=== PATIENT | female | born 1985 | race Caucasian/White ===

== ENCOUNTER 2016-11-15 08:37 | Inpatient (IN) | payer OTHER ==
[~2016-11-15] VITALS: Ht 172.7 cm; Wt 108.9 kg
[~2016-11-15 08:37] MED LIST: ALPRAZOLAM0.5 MG PO; DOXYCYCLINE MO100 MG PO; ESCITALOPRAM10 MG PO; FLEXERIL10 MG PO; PERCOCET 325 MG1 TA2 PO; ZOFRAN 4 MG TABL4 MG PO
[2016-11-15 09:45] LABS: ABSOLUTE BASOPHIL COUNT 0 /CUMM (0.0-0.2); ABSOLUTE EOSINOPHIL COUNT 0.1 /CUMM (0.0-0.7); ABSOLUTE GRANULOCYTE CT 3.7 /CUMM (1.4-6.5); ABSOLUTE LYMPH COUNT 1.7 /CUMM (1.2-3.4); ABSOLUTE MONOCYTE COUNT 0.5 /CUMM (0.10-0.60); BASOPHIL % 0.4 % (0.0-2.0); EOSINOPHIL % 0.9 % (0-5); GRANULOCYTE % 61.2 % (42.2-75.2); HEMATOCRIT 29.6 % (37-47); MEAN CORPUSCULAR HGB 24.6 PG (27.0-31.0); MEAN CORPUSCULAR HGB CONC 33.1 G/DL (33.0-37.0); MEAN CORPUSCULAR VOLUME 74.3 FL (81.0-99.0); MEAN PLATELET VOLUME 8.6 FL (7.4-10.4); PLATELET COUNT 203 /CUMM (130-400); RED BLOOD CELL CT 3.98 /CUMM (4.20-5.40)
--- NOTE | 2016-11-15 18:57 | History & Physical ---
General Information and HPI MD Statement: I have seen and personally examined JEET FLANAGAN and documented this H&P. The patient is a 31 year old female at 39[] weeks and 0[] days gestation who presented with a chief complaint of [induction of labor]. History of Present Illness: 31-year-old 8 para 1 LMP 02/16/2016 EDC 11/22/2016 at 39 weeks presents today from induction of labor secondary to macrosomia and precipitous labor. 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 EENTM: Reports: no symptoms. Cardiovascular: Reports: no symptoms. Respiratory: Reports: no symptoms. GI: Reports: no symptoms. Genitourinary: Reports: no symptoms. Musculoskeletal: Reports: no symptoms. Skin: Reports: no symptoms. Neurological/Psychological: Reports: no symptoms. Hematologic/Endocrine: Reports: no symptoms. Immunologic/Allergic: Reports: no symptoms. All Other Systems: Reviewed and Negative Exam & Diagnostic Data Last 24 Hrs of Vital Signs/I&O Intake & Output 11/15 1600 11/15 0800 11/15 0000 Intake Total Output Total Balance Patient 240 lb Weight Obstetric Exam Wgt Gained During : 40 pounds Pelvimetry: Gynecoid Dilation (cm): 0 Effacement (%): 0 Station: -2 Membranes: intact Fluid: unknown Fundal Height (cm): 41 Multiple Gestation? No Contractions: None Infant #1 - FHR Baseline: 145 Category: 1 Estimated Weight: 9 pounds Presentation: Cephalic Patient for Induction? Yes Theodore Score Theodore Score Response Value Cervix Position: posterior 0 Cervix Consistency: soft 2 Cervix Effacement: 0-30% 0 Cervix Dilation: closed 0 Cervix Station: -2 1 Total 3 Physical Exam: HEENT: Normocephalic atraumatic Chest: Clear to auscultation bilaterally Cardiovascular: Normal S1-S2 Abdomen: Gravid, cephalic, estimated weight 9 pounds pelvic: Long thick closed posterior Extremities: No edema Neurologic: Nonfocal Labs Blood Type & Rh: O+ Antibody Screen: Negative Hct/Hgb & Platelets #1: 34, 11, 196 Hct/Hgb & Platelets #2: 38, 12, 248 Rubella: Immune VDRL #1: Nonreactive VDRL #2: Nonreactive HbsAg: Negative HIV #1: Negative HIV #2 Negative 1 Hr P 3 Hr PG: ED for, 173, 141, 120 Group B Strep: pending Initial Ultrasound: wnl Anatomy Ultrasound: wnl Ultrasound for EFW: 8 Genetic Testing: neg Assessment/Plan Assessment/Plan: 39 week macrosomia induction of labor As Ranked By This Provider Problem List: 1. Core Measures/Miscellaneous Cruz Catheter Date In: 11/15/16 Still Needed? Yes Venous Thromboembolism VTE Risk Factors: Obesity, / VTE Contraindications: No Contraindications VTE Prophylaxis Ordered Inpt: Early Ambulation VTE Diagnosis: No Beta Luis Is Beta Luis a Home Med? No Antibiotics Is Patient on Antibiotics? Yes If Yes: prophylaxis
--- NOTE | 2016-11-16 00:23 | Labor & Delivery Summary ---
Delivery Summary Vaginal Delivery: Vaginal: spontaneous Episiotomy/Lacerations: Type: laceratiion Repair: 3-0 poly int Anesthesia: epi Placenta: Placenta: spontanteous, normal, 3 vessel Anesthesia: epi Baby's Weight: 9-8 Apgars - 1 Min: 9 Apgars - 5 Min: 9
[2016-11-16 01:17] VITALS: BP 125/70
[2016-11-17 08:07] LABS: ABSOLUTE BASOPHIL COUNT 0 /CUMM (0.0-0.2); ABSOLUTE EOSINOPHIL COUNT 0.1 /CUMM (0.0-0.7); ABSOLUTE GRANULOCYTE CT 3.7 /CUMM (1.4-6.5); ABSOLUTE LYMPH COUNT 2.6 /CUMM (1.2-3.4); ABSOLUTE MONOCYTE COUNT 0.5 /CUMM (0.10-0.60); BASOPHIL % 0.6 % (0.0-2.0); EOSINOPHIL % 1.7 % (0-5); GRANULOCYTE % 52.9 % (42.2-75.2); HEMATOCRIT 26.8 % (37-47); MEAN CORPUSCULAR HGB 24.4 PG (27.0-31.0); MEAN CORPUSCULAR HGB CONC 32.8 G/DL (33.0-37.0); MEAN CORPUSCULAR VOLUME 74.4 FL (81.0-99.0); MEAN PLATELET VOLUME 8.9 FL (7.4-10.4); PLATELET COUNT 193 /CUMM (130-400); RBC DISTRIBUTION WIDTH 14.9 % (11.5-14.5)
[2016-11-17] MEDS ORDERED: IBUPROFEN800 M1 PO (09:21)
[2016-11-17] MEDS ORDERED: DOCUSATE SODIU100 M3 PO (09:21)
--- NOTE | 2016-11-17 09:23 | PN- Post Delivery/GYN ---
Subjective Subjective: dewsires discharge Review of Systems: neg Objective Last 24 Hrs of Vital Signs/I&O vss Physical Exam: ff ext nt Assessment/Plan Assessment/Plan ppd1 early discharge Problem List: 1.
== END 2016-11-17 13:25 | DRG 560 ==
LOC: GNO 08:37
PROVIDERS: ADMIT Obstetrics & Gynecology
PROC: 0HQ9XZZ Repair Perineum Skin, External Approach (ICD-10-PCS; principal; 2016-11-15)
PROC: 10E0XZZ Delivery of Products of Conception, External Approach (ICD-10-PCS; 2016-11-15)
PROC: 3E033VJ Introduction of Other Hormone into Peripheral Vein, Percutaneous Approach (ICD-10-PCS; 2016-11-15)
DX: O70.0 First degree perineal laceration during delivery (principal); Z3A.39 39 weeks gestation of pregnancy; Z37.0 Single live birth; O36.63X0 Maternal care for excessive fetal growth, third trimester, not applicable or unspecified
CPT/HCPCS: GNOP; GNOS; 59025; 81001; 81003; 87086; J2405; J7120

== ENCOUNTER 2016-11-22 12:26 | Emergency (ER) | payer OTHER ==
[~2016-11-22] VITALS: Ht 172.7 cm; Wt 103.4 kg
[~2016-11-22 12:26] MED LIST changes: +DOCUSATE SODIU100 M3 PO; +IBUPROFEN800 M1 PO
[2016-11-22 12:39] VITALS: BP 156/89
--- NOTE | 2016-11-22 13:47 | ULTRASOUND REPORT ---
EXAMINATION: US TRIPLEX LOWER EXTREMITY, BILATERAL CLINICAL INFORMATION: Bilateral calf pain; one week . COMPARISON: None. TECHNIQUE: Color-flow triplex imaging with spectral analysis and compression Doppler were performed on the bilateral lower extremities. FINDINGS: Respiratory variation, normal compression and augmented flow are noted throughout the bilateral lower extremities. The visualized common femoral vein, proximal greater saphenous vein, femoral vein, profunda femoral vein, popliteal vein and visualized mid calf venous segments show no evidence of deep venous thrombosis. There is no Greene's cyst. IMPRESSION: Normal triplex scan without evidence of deep venous thrombosis involving the bilateral lower extremities.
--- NOTE | 2016-11-22 14:35 | ED CARDIAC/CP/PALPITATIONS ---
See Addendum History of Present Illness General Chief Complaint: Chest Pain Stated Complaint: SIB PASHA SHAVER FOR CHEST PAIN Source: patient Exam Limitations: no limitations Vital Signs & Intake/Output Vital Signs & Intake/Output Vital Signs Date Time Temp Pulse Resp B/P Pulse O2 O2 Flow FiO2 Ox Delivery Rate 11/22 1400 99 Room Air 11/22 1239 97.8 66 20 156/89 99 Room Air Allergies Coded Allergies: NO KNOWN ALLERGIES (11/15/16) Reconcile Medications Docusate Sodium 100 MG CAPSULE 100 MG PO BID PRN STOOL SOFTENER Ibuprofen 800 MG TABLET 800 MG PO Q6P PRN UTERINE CRAMPING Triage Note: PT SIB DR CASAREZ FOR CP, BILATERAL CALF PAIN. PT IS 1 WEEK NORMAL VAGINAL DELIVERY. . PT STATES SHE IS ALSO SOB. STATES THE PAIN STARTED THE DAY AFTER DELIVERY Triage Nurses Notes Reviewed? yes : No Patient currently breastfeeds: No HPI: Patient is a 31-year-old lady who had a recent normal vagianl delivery (11/16) is SIB her [employer] clinic for evaluation of possible pulmonary embolus. She reports that one day after delivery she started experiencing chest pain which she described as sharp and more prominent duirng inspirations. Patient reports that her episodes of chest intermittent and have been there for 5 days. Associated symptoms include mild shortness of breath, and bilateral leg pain. Patient denies any radiation of her chest pain to upper extremities or jaw, no numbness or tingling of the upper extremities, no nausea vomiting, and no diaphoresis. The pain is also not affected by exertion. Past History Travel History Traveled to [place] past 21 day No Medical History Any Pertinent Medical History? 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 No Review of Systems Review of Systems Constitutional: Denies: chills, diaphoresis, fever, malaise, weakness. EENTM: Denies: double vision, visual changes. Respiratory: Denies: cough, hemoptysis, orthopnea, short of breath. Cardiovascular: Denies: chest pain, edema, orthopena. GI: Denies: bloating, constipation, diarrhea, distention. Genitourinary: Denies: discharge, dysuria, frequency. Musculoskeletal: Denies: gout, joint swelling, muscle pain. Skin: Reports: no symptoms. Neurological/Psychological: Denies: anxiety, ataxia, confusion, depressed. Hematologic/Endocrine: Denies: bruising, bleeding, polyuria. Physical Exam Physical Exam General Appearance: no apparent distress, alert, awake Head: atraumatic, normal appearance Eyes: Bilateral: normal appearance, PERRL. Ears, Nose, Throat: normal pharynx Neck: normal inspection Respiratory: normal breath sounds, chest non-tender, no respiratory distress Cardiovascular: regular rate/rhythm Peripheral Pulses: 2+ popliteal (R), 2+ popliteal (L), 2+ tibialis posterior (R), 2+ tibialis posterior (L), 2+ dorsalis pedis (R), 2+ dorsalis pedis (L) Gastrointestinal: normal bowel sounds, soft, non-tender Back: normal inspection, normal range of motion, vertebral tenderness Extremities: normal inspection, normal capillary refill, no erythema or tenderness noted on lower extremities. Molly sign negative. Popliteal pulses +2 b /l. Neurologic/Psych: no motor/sensory deficits, awake, alert Skin: intact, normal color, warm/dry Core Measures ACS in differential dx? Yes ASA ordered for poss ACS? Patient decided to leave AMA. Pt's chest pain was not typical or suggestive of ACS, trops were not obtained due to patinet leaving. Severe Sepsis Present: No Septic Shock Present: No All Positive = PERC Ruled Out: Positive: age < 50 years, heart rate < 100 bpm, O2 sat > 94%, no hemoptysis, no hormone use, no prior DVT or PE, no unilateral leg swellin, no surgery/trauma w/ in 4w. Progress Differential Diagnosis: AMI, costochondritis, pneumonia, pulmonary embolism, respiratory failure Plan of Care: Orders Procedure Date/time Status EKG 11/22 1229 Active Laboratory Tests 11/22/16 1426: Troponin I Cancelled, D-Dimer Cancelled Initial ED EKG: no ST T wave changes Departure Departure Time of Disposition: 1435 Disposition: LEFT AGAINST MEDICAL ADVICE Condition: Stable Clinical Impression Primary Impression: Chest pain Ruled Out Impressions: Pulmonary embolism Referrals: PATIENT HAS NO PRIMARY CARE DR (PCP/Family) Departure Forms: Customer Survey General Discharge Information Comments Patient was adamant that she did not want to stay longer in the ED because her son was in the car with family memeber and did not want to bring her less than 1 week baby in to the ED. She was satisfied that the doppler was negative for DVT. Counseled patient regarding the need to do more workup to completely ruled out PE and other cuases of chest pain. Pt was informed about the dangers of living against medical advice. Patient understood the risk and opted to leave after signing the AMA form. Reiterated to the patient that she needs to seek immediate medical attention if her condition worsens. Critical Care Note Critical Care Note Critical Care Time: 30-74 min
== END 2016-11-22 14:45 | disposition left against medical advice (07) ==
LOC: ERH 12:26
DX: R07.9 Chest pain, unspecified (principal); I26.99 Other pulmonary embolism without acute cor pulmonale; O90.9 Complication of the puerperium, unspecified
CPT/HCPCS: 93005; 93010; 93970

== ENCOUNTER 2017-01-18 07:46 | Emergency (ER) | payer OTHER ==
[~2017-01-18] VITALS: Ht 172.7 cm; Wt 86.2 kg
--- NOTE | 2017-01-18 07:58 | ED PSYCHIATRIC COMPLAINT ---
History of Present Illness General Chief Complaint: Psychiatric Related Complaint Stated Complaint: BIBA ANXIETY AND DEPRESSION Source: patient Exam Limitations: no limitations Vital Signs & Intake/Output Vital Signs & Intake/Output Vital Signs Date Time Temp Pulse Resp B/P Pulse O2 O2 Flow FiO2 Ox Delivery Rate 01/18 1230 75 16 140/85 98 Room Air 01/18 0801 97 01/18 0757 97.8 86 20 158/90 Room Air Allergies Coded Allergies: NO KNOWN ALLERGIES (11/15/16) Reconcile Medications Alprazolam (Xanax) 0.5 MG TABLET 1 TAB PO Q12 PRN ANXIETY Escitalopram Oxalate 10 MG TABLET 1 TAB PO DAILY MENTAL HEALTH (Reported) Triage Nurses Notes Reviewed? yes Onset: Abrupt Duration: day(s): Timing: recent history HPI: 01/18/17 9:25 AM 31-year-old female presents to the emergency department for depression and anxiety. The patient states she recently lost her son. She has a history of depression for which she takes Lexapro. She also has a history of severe anxiety. She ran out of her benzodiazepines approximately one week ago. She sees an outside psychiatrist. The onset of the symptoms were abrupt, the duration has been approximately the past week, the severity is significant; as her symptoms required to come to the emergency department for care. She has associated depression and anxiety. Labs were sent. Crisis consultation was requested. She denies suicidal ideation currently in the ED Past History Travel History Traveled to [place] past 21 day No Medical History Any Pertinent Medical History? 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 No Review of Systems Review of Systems Constitutional: Denies: fever. EENTM: Reports: no symptoms. Respiratory: Reports: no symptoms. Cardiovascular: Reports: no symptoms. GI: Reports: no symptoms. Genitourinary: Reports: no symptoms. Musculoskeletal: Reports: no symptoms. Skin: Reports: no symptoms. Neurological/Psychological: Reports: depressed. Hematologic/Endocrine: Reports: no symptoms. Immunologic/Allergic: Reports: no symptoms. Physical Exam Physical Exam General Appearance: well developed/nourished, alert, awake, anxious, mild distress Head: atraumatic, normal appearance Eyes: Bilateral: normal appearance, PERRL, EOMI. Ears, Nose, Throat: normal pharynx, normal ENT inspection Neck: normal inspection, supple Respiratory: normal breath sounds, chest non-tender, no respiratory distress Cardiovascular: regular rate/rhythm Gastrointestinal: non-tender Extremities: normal range of motion Neurological/Psychiatric: awake, alert, anxious, oriented x 3 Appearance/Memory/Insight: appropriate appearance Behavoir/Eye Contact/Speech: cooperative Thoughts/Hallucinations: normal thought pattern, no apparent hallucination Skin: intact, normal color, warm/dry SAD PERSONS SAD PERSONS Response Value Depression/Hopelessness? yes 2 Previous Attempts/Psych Care yes 1 Social Support? has support 0 Total 3 SAD PERSONS Done? yes Progress Differential Diagnosis: drug overdose, drug withdrawal, depression Plan of Care: Orders Procedure Date/time Status Add-on Test (ER Only) 01/18 1218 Active THYROID STIMULATING HORMONE 01/18 838 Complete Continuous Observation Monitor 01/18 817 Complete URINE DRUG SCREEN FOR ER ONLY 01/18 817 Complete ETHANOL 01/18 817 Complete COMPREHENSIVE METABOLIC PANEL 01/18 817 Complete CBC WITHOUT DIFFERENTIAL 01/18 817 Complete ED CRISIS PSYCH CONSULT 01/18 817 Active Laboratory Tests 01/18/17 0840: Urine Opiates Screen < 100.00, Methadone Screen 42, Barbiturate Screen < 60, Ur Phencyclidine Scrn < 6.00, Amphetamines Screen < 100, U Benzodiazepines Scrn > 800 H, Urine Cocaine Screen < 50, Urine Cannabis Screen < 5.00 01/18/17 0838: Anion Gap 14, Estimated GFR > 60, BUN/Creatinine Ratio 14.0, Glucose 101 H, Calcium 9.5, Total Bilirubin 0.7, AST 309 H, ALT 192 H, Alkaline Phosphatase 103, Total Protein 7.7, Albumin 4.7, Globulin 3.0, Albumin/Globulin Ratio 1.6, TSH 1.270, CBC w Diff NO MAN DIFF REQ, RBC 4.71, MCV 81.7, MCH 27.7, RDW 21.3 H , MPV 7.8, Gran % 70.8, Lymphocytes % 23.0, Monocytes % 5.2, Eosinophils % 0.6, Basophils % 0.4, Absolute Granulocytes 4.8, Absolute Lymphocytes 1.6, Absolute Monocytes 0.4, Absolute Eosinophils 0, Absolute Basophils 0, PUBS MCHC 33.9, Serum Alcohol 28.0 Initial ED EKG: none Departure Departure Disposition: HOME OR SELF CARE Condition: Stable Clinical Impression Primary Impression: Anxiety Secondary Impressions: Depression Referrals: PILO CHOUDHURY MD Departure Forms: Customer Survey General Discharge Information Prescriptions: Current Visit Scripts Alprazolam (Xanax) 1 TAB PO Q12 PRN ANXIETY #10 TAB Comments Patient seen and evaluated and cleared by crisis. Her elevated liver enzymes were reviewed with her. She will follow these results up with primary care doctor this week.
[2017-01-18 08:57] LABS: ABSOLUTE BASOPHIL COUNT 0 /CUMM (0.0-0.2); ABSOLUTE EOSINOPHIL COUNT 0 /CUMM (0.0-0.7); ABSOLUTE GRANULOCYTE CT 4.8 /CUMM (1.4-6.5); ABSOLUTE LYMPH COUNT 1.6 /CUMM (1.2-3.4); ABSOLUTE MONOCYTE COUNT 0.4 /CUMM (0.10-0.60); BASOPHIL % 0.4 % (0.0-2.0); EOSINOPHIL % 0.6 % (0-5); GRANULOCYTE % 70.8 % (42.2-75.2); HEMATOCRIT 38.5 % (37-47); MEAN CORPUSCULAR HGB 27.7 PG (27.0-31.0); MEAN CORPUSCULAR HGB CONC 33.9 G/DL (33.0-37.0); MEAN CORPUSCULAR VOLUME 81.7 FL (81.0-99.0); MEAN PLATELET VOLUME 7.8 FL (7.4-10.4); PLATELET COUNT 286 /CUMM (130-400); RBC DISTRIBUTION WIDTH 21.3 % (11.5-14.5); RED BLOOD CELL CT 4.71 /CUMM (4.20-5.40); WHITE BLOOD CELL COUNT 6.9 /CUMM (4.8-10.8)
[2017-01-18] MEDS ORDERED: ESCITALOPRAM OX10 MG PO (09:03)
--- NOTE | 2017-01-18 09:59 | ED PSYCH CRISIS CONSULTATION ---
Crisis Consult Basic Assessment Date of Consult: 01/18/17 Responsible Person/Accompanied By: self Insurance Authorization: Insurance #1: Insurance name: [employer] C&A Phone number: Policy number: [id number] Group number: Authorization number: ED Provider: Patient's ED Provider: DANILO KATE DO Primary Care Physician: Patient's PCP: PILO CHOUDHURY MD PCP's Current Psychiatrist: Dr. Rene Thomas Chief Complaint: Psychiatric Related Complaint Patient's Quote: " I feel like I can't breathe." Present Illness: Pt is a 31 yo single caucaisn female presenting to the ED with anxiety and panic attacks. She said she is having racing thoughts, can't sleep or eat and feels like she can't breathe. Pt reported she most recently lost her 1 month old son in ( 6 weeks ago). Pt stated her and her boyfriend let the baby sleep with them in the bed , and the baby suffocated. The pt said she tried to perform CPR prior to the at [facility]. Pt started seeing Dr. Yaneli Stone for anxiety and depression. Per pt report, she was being prescribed lexapro and xanax( 2mg?) but cannot recall the dosages. She said the psychiatrist could no longer prescribe her because of her insurance. Pt UTOX was positive for benzos ( > 800) but she said she last used them 3 days ago and her TWIN was 28.0 this morning. This clinician inquired if pt used her xanax while drinking and she denied. Pt denies SI/HI/AVH and substance abuse. Pt said she is not suicidal and has no hx attempts. No hx of tx at [facility]. She is living with her boyfriend in [place] with her 7 yo daughter. 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 Pt would like to get connected to individual therapist who can prescribe medications. This group underwriter offered IOP level of care given her distress. Pt does not feel she needs IOP level of care at this time. Per collateral with Chandan ( boyfriend) [phone]: Per Chandan, pt has not been sleeping and thinks she is withdrawling from her xanax. Chandan thinks it has been a couple days since she has last had xanax. He discussed the horrible tragedy of their son and is worried about the pt not getting sleep and her mental health declining. Per collateral with German-father ( face to face): Father reported his concern that she is having acute panic attacks since the loss of her son. He would like for her to get help to process out this horrible incident. Per collateral with Dr. Sanders" [phone]: Dr. Valles had seen her twice since the loss of her son. The OB originally referred her to Dr. Valles. She saw her and recommended Lexapro and Xanax. Dr. Valles suspected she might be drinking alcohol but cannot confirm that. Dr. Valles stated she had given the pt enough lexapro and xanax that she should have enough to last her through today. The pt said she felt Dr. Valles was not talking to her enough because of her insurance and Dr. Valles explained her role is to see pt's for 20 minutes for medications. The pt refuses to see Dr. Valles for tx. Dr. Valles said there is no doubt there are severe stressors and pt needs help. Dr. Valles recommended an IOP level of care until she finds a psychiatrist. Patient's Address: [address] [place] [address] Other Phone Number: Who Do You Live With? Significant Other Family/Informants Interviewed: German William- Father Allergies - Coded Allergies: NO KNOWN ALLERGIES (11/15/16) Current Medications - Scheduled Medications Escitalopram Oxalate 10 MG TABLET 1 TAB PO DAILY MENTAL HEALTH #30 (Reported) Entered as Reported by SHAHAB RIBERA on 01/18/17 0903 Last Taken: At an unknown date and time Scheduled PRN Medications Alprazolam (Xanax) 0.5 MG TABLET 1 TAB PO Q12 PRN ANXIETY #10 TAB Prescribed by DANILO KATE DO on 01/18/17 Laboratory Results: Laboratory Tests 01/18/17 0840: Urine Opiates Screen < 100.00, Methadone Screen 42, Barbiturate Screen < 60, Ur Phencyclidine Scrn < 6.00, Amphetamines Screen < 100, U Benzodiazepines Scrn > 800 H, Urine Cocaine Screen < 50, Urine Cannabis Screen < 5.00 01/18/17 0838: Anion Gap 14, Estimated GFR > 60, BUN/Creatinine Ratio 14.0, Glucose 101 H, Calcium 9.5, Total Bilirubin 0.7, AST 309 H, ALT 192 H, Alkaline Phosphatase 103, Total Protein 7.7, Albumin 4.7, Globulin 3.0, Albumin/Globulin Ratio 1.6, CBC w Diff NO MAN DIFF REQ, RBC 4.71, MCV 81.7, MCH 27.7, RDW 21.3 H, MPV 7.8, Gran % 70.8, Lymphocytes % 23.0, Monocytes % 5.2, Eosinophils % 0.6, Basophils % 0.4, Absolute Granulocytes 4.8, Absolute Lymphocytes 1.6, Absolute Monocytes 0.4 , Absolute Eosinophils 0, Absolute Basophils 0, PUBS MCHC 33.9, Serum Alcohol 28.0 Past History Past Medical History Neurological: NONE EENT: NONE Cardiovascular: NONE Respiratory: NONE Gastrointestinal: NONE Hepatic: NONE Renal: NONE Musculoskeletal: NONE Psychiatric: anxiety Endocrine: NONE Blood Disorders: NONE Cancer(s): NONE 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 Physical Limitations (Interventions): No Psychiatric Treatment History Psych Treatment Psychiatric Treatment Yes Inpatient Treatment No Outpatient Treatment Yes [facility] Reason for Treatment Anxiety and depression Dates of Treatment The past month Response to Treatment fair Diagnosis by History: Anxiety and depression Substance Use/Abuse History Drug Use/Abuse Substances Used/Abused Yes Substance Used/Abused Alcohol First Use 22 yo Last Used last night How much used/taken 3 glasses of wine How often not often For how long past few years Route of use oral Substance Abuse Treatment Substance Abuse Treatment Past Substance Abuse [place] No Inpatient Treatment No Outpatient Treatment No Current Mental Status Mental Status Orientation: Person, Place, Situation Affect: Anxious Speech: WNL Neuro-vegetative: Appetite Decreased, Concentration Poor, Energy Decreased, Sleep Disturbance Appearance Appearance- Dress/Hygiene: Pt is dressed in hospital gown. Hygiene is fair. Behaviors Thought Process: WNL Thought Content: WNL Memory: WNL Insight: Fair SI/HI Risk Assessment Past Suicidal Ideation/Attempts No Current Suicidal Ideation/Att No Past Homicidal Ideation/Att: No Current Homicidal Ideation/Attempts No Degree of Intent: None Risk Factors: high anxiety/distress Lethality Ratin (mild) PTSD Checklist PTSD Done? pt unable to participate ED Management Sitter: Yes Restraints: No DSM5/PS Stressors/Medical Prob Diagnosis' (DSM 5, Stressors, Medical): F 32.9 unspecified depression; F41.1 Anxiety disorder F 43.1 PTSD unspecified Current GAF: 45 Comments: Pt is in distress after the loss of her son, 6 weeks ago. She would like individual counseling and to meet with a presciber for help with her panic attacks. Departure Disposition Psych Medical Clearance Date: 01/18/17 Medically Cleared at: 0830 Time Started: 929 Time Ended: 103 Psychiatrist Consulted: Gerard Fregoso MD Date Disposition Established: 01/18/17 Time Disposition Established: 1129 Plan for Disposition - Modality: Outpatient Facility: [facility] Follow-up Appt Date: 01/29/17 Follow-Up Appt Time: 1030 Contact: OPS Rationale for Disposition: Pt denies SI/HI/AVH at current. She requested referral for individual counseling and a presciber as she is not suicidal or homicidal. This group underwriter consulted with Dr. Fregoso, and the pt was offered IOP level tx and she refused. Pt was only agreeable to OPS with [facility]. She prefers [facility] because her baby in [place]. Pt will follow up with OPS intake appointment and verbalized safety plan/utilizing 211 if she feels unsafe. Referrals PASHA PARIS MD,PILO
[2017-01-18] MEDS ORDERED: XANAX0.5 M1 PO (12:21)
[2017-01-18 12:30] VITALS: BP 140/85
== END 2017-01-18 12:42 ==
LOC: ERH 07:46
PROVIDERS: Emergency Medicine
DX: F41.9 Anxiety disorder, unspecified (principal); F32.9 Major depressive disorder, single episode, unspecified
CPT/HCPCS: 80307; G0463; G0480